=== PATIENT | male | born 1980 | race Caucasian/White ===

== ENCOUNTER 2020-12-06 07:08 | Emergency (ER) | payer OTHER ==
[~2020-12-06] VITALS: Ht 162.6 cm; Wt 63.5 kg
--- NOTE | 2020-12-06 07:13 | NUR ---
pt self presents to ed. ambulatory w/ steady gait requesting voluntary psych admission for having suicidal ideation but denies any specific plan. pt admits to smoking meth but denies alcohol or any other drugs. placed on si precaution. sitter at bedside. awaiting md gayle.
[2020-12-06 07:14] VITALS: BP 135/88
--- NOTE | 2020-12-06 07:14 | NUR ---
dr castaneda at bedside for eval.
--- NOTE | 2020-12-06 07:24 | NUR ---
urine specimen collected. sent to lab.
--- NOTE | 2020-12-06 07:25 | NUR ---
lab specialist at bedside for blood draw.
[2020-12-06] MEDS ORDERED: OLANZAPINE 5 MG TABLET ONE (07:31)
[2020-12-06 07:36] LABS: BASOPHILS % (AUTO) 0.5 % (0.0-2.0); EOSINOPHILS % (AUTO) 1.5 % (0.0-6.0); HEMATOCRIT 40 % (39-51); HEMOGLOBIN 13.3 g/dL (13.5-17.5); LYMPHOCYTES % (AUTO) 9.6 % (20.0-44.0); MEAN CORPUSCULAR HGB CONC 33 g/dl (31.0-36.0); MEAN CORPUSCULAR VOLUME 83 fL (80-96); MONOCYTES # (AUTO) 0.6 /CMM (0.1-1.30); MONOCYTES % (AUTO) 6.2 % (2.0-12.0); NEUTROPHILS # (AUTO) 8.2 /CMM (1.8-8.9); NEUTROPHILS % (AUTO) 82.2 % (43.0-81.0); PLATELET COUNT (AUTO) 345 /CMM (150-450); RED BLOOD CELL COUNT(AUTO) 4.82 MIL/uL (4.5-6.0)
[2020-12-06] MEDS: OLANZAPINE 5 MG TABLET PO ONE (07:39)
[2020-12-06 07:44] LABS: CALCIUM, SERUM 8.8 mg/dL (8.5-10.1); CARBON DIOXIDE 27 mmol/L (21-32); CHLORIDE 103 mmol/L (98-107); CREATININE 0.9 mg/dL (0.6-1.3); GLUCOSE 137 mg/dL (74-106); POTASSIUM 3.6 mmol/L (3.5-5.1); SODIUM SERUM 140 mmol/L (136-145); UREA NITROGEN, BLOOD 11 mg/dL (7-18)
[2020-12-06 07:44] LABS: BILIRUBIN,URINE Negative (NEGATIVE); COLOR,URINE YELLOW (YELLOW); LEUKOCYTE ESTERASE ,URINE Negative (NEGATIVE); NITRITE, URINE Negative (NEGATIVE); PROTEIN,URINE Negative (NEGATIVE); UGLUCOSE Negative (NEGATIVE); UROBILINOGEN,URINE 0.2 EU/dL (0.2)
[2020-12-06 07:45] LABS: BACTERIA,URINE Rare /HPF (None Seen); SQUAMOUS EPITHELIAL CELL,UR Rare /HPF (None Seen); WBC,URINE 0-2 /HPF (0-3)
[2020-12-06 07:50] LABS: ALANINE AMINOTRANSFERASE 26 U/L (12-78); ALBUMIN 3.8 g/dL (3.4-5.0); ALCOHOL, BLOOD < 3 mg/dL (0-0); ALKALINE PHOSPHATASE 95 U/L (46-116); ASPARTATE AMINOTRANSFERASE 18 U/L (15-37); BILIRUBIN,DIRECT 0.1 mg/dL (0.0-0.2); BILIRUBIN,TOTAL 0.3 mg/dL (0.2-1.0); TOTAL PROTEIN, SERUM 7.7 g/dL (6.4-8.2)
[2020-12-06 07:54] LABS: ACETAMINOPHEN 0 ug/ml (10-30)
--- NOTE | 2020-12-06 10:19 | NUR ---
patient accepted at [facility] (intake).
--- NOTE | 2020-12-06 10:50 | NUR ---
"SS Consult: SS Consult requested for Homelessness & requesting voluntary psych admission. The pt. is 40-year old male who presents to the ED with C/O auditory hallucinations, per EMR. DENNIS met with pt. bedside. The pt. appears disheveled, makes poor eye contact and refusing to be interviewed by SW. SW informed pt. that SW to assist with D/C planning to psych hospital. SW asked nurse to assist with arousing pt. Pt. with eye open and did not engage in conversation with SW. Plan: SW referred pt. to [facility] [[address] [place], [place] [address] FAX:[phone]] for inpatient psychiatric treatment. Patient refused to sign homeless waiver & it was placed in the pt.'s chart. SW provided pt. with the following homeless resources and pt. accepted them: Substance Abuse resources provided included: [facility] Substance Abuse Self-Helpline ([facility]) ; CRI -HELP [address] [facility]. [place] [address] ; [facility] [address] [facility] [address] ; [facility] Rehabilitation Program [address] [facility] [address] ; [facility] [address] [facility] [id number] ; [facility] 4940 [facility] [address] ; [facility] [address] [facility] [address] ; [facility] Substance Abuse Helpline([facility] ; [facility] ; [facility] [place]; [facility] [place]; C[facility]Help [place]; [facility] Zev Gentile; [facility] [place]; [facility] [place]; [facility] [place]; [facility]'s [place], [facility]. [facility]; Alcoholics Anonymous -SFV; Ac-Itcr-Qkqtsuq ; Marijuana Anonymous -SFV; Narcotics Anonymous www.na.org; Year-round shelters: [facility] [place] [address] [place], [place] [phone] ; [facility] [place] [address] [place] [address]; [facility] Sgdhhpa3354 [facility] [address] Winter Shelters: [facility] Provider: [facility] Address: [address] [place], [address] # of Beds: 47 Population Served: [facility] 6 | [facility] Provider: Home at Last Address: [address], [address] # of Beds: 66 Population Served: [facility] ILD [employer] [place] Provider: First to Serve Address: [address] [facility], [address] # of Beds: 56 Population Served: [facility] Dylan MerinoNella [place] Provider: [facility] Address: [address] [facility], [address] # of Beds: 49 Population Served: [facility] 8 | [facility] Provider: First to Serve Address: [address] [facility], [address] # of Beds: 37 Population Served: [facility] Hygiene: [facility]: [address] [address]. Therese ; [facility] [address] [facility] ; [facility] 6822 [facility] . Food Resources: [place] [facility] at [facility]- [address] [place]; Meet Each Need with Dignity ([facility]) [address] [place]; [facility] Food Pantry [address] [facility]; [facility] 8590 [facility]. Mental Health resources provided: [facility] [address] [place], [place] [id number] ; [facility] [address] [facility] [address], [place] [address] ; [facility] [address] [facility] [place], [place] [id number] ; [facility] Health Mobile [address] [place], [place] [id number] Healthcare Clinics: [facility] [address] [facility], [address] [place]. [place] ; [facility] [address] [facility] [facility] [facility] [address] [place] [address]; [facility] Health Mobile [address] [facility]. [place] [phone] Counseling--Outpatient Merg[facility] [address], [address] [place], [place] [address] (Specializes in in-depth psychotherapy for emotional distress: anxiety, depression, interpersonal conflicts, life transitions, childhood abuse) [facility] [address] [place] [address] (Assist with solving problem marital difficulties, separation & divorce, aging parents, & grief, chronic & terminal illness) [facility] [address] [place] [address] (Deal with loss & grief, anxiety, marital difficulties) Homebound/Mental Health Services [address] [facility], [address] [place], [place] [address] (Provide in-home mental services to people who are incapable of leaving their homes) [facility] of the Elderly Senior Service/Resource Center [address] [place] [address] [facility] [address] [place] [address] PSYCHIATRIC OUTPATIENT SERVICES [facility] Partial Hospitalization and Intensive Outpatient Program (Managed Care and [place] Only)[address] Kenny Diallo [facility] [phone] [facility] Partial Hospitalization and Outpatient [id number] [place], [place] [phone] [facility] Partial Hospitalization and Outpatient Npourmo8058 Zev [address]ck[address] [place], [place] [phone] [facility] [id number] [address] [place], [place] [phone] [facility] Partial Hospitalization and Outpatient [id number] [facility] [place] Zev GentileNOR[place], [phone] "
--- NOTE | 2020-12-06 12:40 | NUR ---
CALLED [facility] FOR TRANSPORT TO [facility], ETA 60 MINUTES.
--- NOTE | 2020-12-06 13:49 | NUR ---
REPORT GIVEN TO DIRECTOR BUSINESS TRAVEL, PATIENT A/OX4, BREATHING EVEN AND UNLABORED, NO SOB NOTED. PATIENT TRANSFERRED TO [facility] IN STABLE CONDITION.
== END 2020-12-06 14:06 ==
LOC: ER 07:08
DX: F20.9 Schizophrenia, unspecified (principal); Z59.0 Homelessness; Z91.013 Allergy to seafood; F31.9 Bipolar disorder, unspecified; Z20.822 Contact with and (suspected) exposure to COVID-19
CPT/HCPCS: 36415; 80048; 80076; 80143; 80307; 80320; 81001; 85025; 87426; 99285; C9803; G0480

== ENCOUNTER 2022-01-28 15:40 | Emergency (ER) | payer OTHER ==
[~2022-01-28] VITALS: Ht 167.6 cm; Wt 71.2 kg
[2022-01-28 16:50] LABS: BASOPHILS % (AUTO) 0.3 % (0.0-2.0); EOSINOPHILS % (AUTO) 0.4 % (0.0-6.0); HEMATOCRIT 41 % (39-51); HEMOGLOBIN 13.5 g/dL (13.5-17.5); LYMPHOCYTES % (AUTO) 9.5 % (20.0-44.0); MEAN CORPUSCULAR HGB CONC 33 g/dl (31.0-36.0); MEAN CORPUSCULAR VOLUME 82 fL (80-96); MONOCYTES # (AUTO) 0.9 K/uL (0.1-1.30); NEUTROPHILS # (AUTO) 8.3 K/uL (1.8-8.9); NEUTROPHILS % (AUTO) 80.8 % (43.0-81.0); PLATELET COUNT (AUTO) 310 K/uL (150-450); RED BLOOD CELL COUNT(AUTO) 4.98 MIL/uL (4.5-6.0); WHITE BLOOD COUNT (AUTO) 10.2 K/uL (4.3-11.0)
[2022-01-28 17:17] LABS: CARBON DIOXIDE 29 mmol/L (21-32); CHLORIDE 102 mmol/L (98-107); GLUCOSE 95 mg/dL (74-106); POTASSIUM 4.5 mmol/L (3.5-5.1); SODIUM SERUM 139 mmol/L (136-145); UREA NITROGEN, BLOOD 14 mg/dL (7-18)
[2022-01-28 17:21] LABS: ACETAMINOPHEN < 0 ug/ml (10-30); ALANINE AMINOTRANSFERASE 20 U/L (12-78); ALBUMIN 3.9 g/dL (3.4-5.0); ALCOHOL, BLOOD < 3 mg/dL (0-0); ALKALINE PHOSPHATASE 86 U/L (46-116); ASPARTATE AMINOTRANSFERASE 11 U/L (15-37); BILIRUBIN,DIRECT 0.1 mg/dL (0.0-0.2); BILIRUBIN,TOTAL 0.3 mg/dL (0.2-1.0); TOTAL PROTEIN, SERUM 8.1 g/dL (6.4-8.2)
--- NOTE | 2022-01-28 19:06 | NUR ---
COVID TEST COLLECTED AND SENT
--- NOTE | 2022-01-28 19:44 | NUR ---
urine collected sent to lab
[2022-01-28 19:56] LABS: BILIRUBIN,URINE NEGATIVE (NEGATIVE); COLOR,URINE YELLOW (YELLOW); LEUKOCYTE ESTERASE ,URINE NEGATIVE (NEGATIVE); NITRITE, URINE NEGATIVE (NEGATIVE); PH,URINE 8.5 (5.0-8.0); PROTEIN,URINE NEGATIVE (NEGATIVE); UGLUCOSE NEGATIVE (NEGATIVE); UROBILINOGEN,URINE 0.2 EU/dL (0.2)
--- NOTE | 2022-01-28 21:10 | NUR ---
FACESHEET AND CLINICALS FAXED TO [facility].
[2022-01-28] MEDS ORDERED: OLANZAPINE 5 MG TABLET ONE (21:45)
--- NOTE | 2022-01-28 21:48 | NUR ---
PATIENT REFUSED MEDICATION LOAN SECRETARY NOTIFIED.
[2022-01-28] MEDS ORDERED: OLANZAPINE 5 MG TABLET PO ONE (22:00)
[2022-01-29] VITALS: BP 127/71
--- NOTE | 2022-01-29 01:14 | NUR ---
TRANSFER INFO PT ACCEPTED AT [facility] UNDER DR. ERAZO. NUMBER FOR REPORT:
--- NOTE | 2022-01-29 01:17 | NUR ---
[facility] ETA 1 HOUR.
--- NOTE | 2022-01-29 01:51 | NUR ---
REPORT GIVEN TO CRYSTAL HARDEN
--- NOTE | 2022-01-29 02:14 | NUR ---
[facility] AT BED SIDE TO OWNER MANAGER THE PT
== END 2022-01-29 02:20 ==
LOC: ER 15:48
DX: R44.0 Auditory hallucinations (principal); Z20.822 Contact with and (suspected) exposure to COVID-19; Z59.00 Homelessness unspecified; Z91.013 Allergy to seafood; F31.9 Bipolar disorder, unspecified
CPT/HCPCS: 99285; 85025; 80048; 80076; 81003; 36415; 87426; 80143; 80320; 80307; C9803; G0480

== ENCOUNTER 2024-12-05 20:56 | Emergency (ER) | payer OTHER ==
[~2024-12-05] VITALS: Ht 160 cm; Wt 68.0 kg
[2024-12-05 23:20] LABS: BASOPHILS # (AUTO) 0.1 K/uL (0.0-0.2); BASOPHILS % (AUTO) 0.7 % (0.0-2.0); EOSINOPHILS # (AUTO) 0.1 K/uL (0.0-0.7); EOSINOPHILS % (AUTO) 1.6 % (0.0-6.0); HEMATOCRIT 40 % (39-51); HEMOGLOBIN 12.8 g/dL (13.5-17.5); LYMPHOCYTES # (AUTO) 1.3 K/uL (0.8-4.8); LYMPHOCYTES % (AUTO) 16.3 % (20.0-44.0); MEAN CORPUSCULAR HEMOGLOBIN 24 PG (26.0-33.0); MEAN CORPUSCULAR HGB CONC 32 g/dl (31.0-36.0); MEAN CORPUSCULAR VOLUME 76 fL (80-96); MONOCYTES # (AUTO) 0.7 K/uL (0.1-1.30); NEUTROPHILS % (AUTO) 72.4 % (43.0-81.0); PLATELET COUNT (AUTO) 398 K/uL (150-450); RED BLOOD CELL COUNT(AUTO) 5.27 MIL/uL (4.5-6.0); RED CELL DISTRIBUTION WIDTH 16.5 % (11.5-15.0); WHITE BLOOD COUNT (AUTO) 8.2 K/uL (4.3-11.0)
[2024-12-05 23:25] LABS: APPEARANCE,URINE CLEAR (CLEAR); BILIRUBIN,URINE NEGATIVE (NEGATIVE); BLOOD, URINE NEGATIVE Ery/uL (NEGATIVE); COLOR,URINE YELLOW (YELLOW); KETONES,URINE 2+ mg/dL (NEGATIVE); LEUKOCYTE ESTERASE ,URINE NEGATIVE (NEGATIVE); NITRITE, URINE NEGATIVE (NEGATIVE); PROTEIN,URINE NEGATIVE (NEGATIVE); UGLUCOSE NEGATIVE (NEGATIVE); UROBILINOGEN,URINE 0.2 EU/dL (0.2)
[2024-12-05 23:32] LABS: CALCIUM, SERUM 9.3 mg/dL (8.5-10.1); CARBON DIOXIDE 27 mmol/L (21-32); CHLORIDE 105 mmol/L (98-107); CREATININE 0.9 mg/dL (0.6-1.3); GLUCOSE 103 mg/dL (74-106); POTASSIUM 3.9 mmol/L (3.5-5.1); SODIUM SERUM 143 mmol/L (136-145); UREA NITROGEN, BLOOD 16 mg/dL (7-18)
[2024-12-05 23:35] LABS: ALANINE AMINOTRANSFERASE 19 U/L (12-78); ALBUMIN 3.7 g/dL (3.4-5.0); ALCOHOL, BLOOD < 3 mg/dL (0-10); ALKALINE PHOSPHATASE 100 U/L (46-116); ASPARTATE AMINOTRANSFERASE 16 U/L (15-37); BILIRUBIN,TOTAL 0.4 mg/dL (0.2-1.0); TOTAL PROTEIN, SERUM 8.2 g/dL (6.4-8.2)
[2024-12-05 23:36] LABS: AMPHETAMINE, URINE NEGATIVE (NEGATIVE); BARBITURATE, URINE NEGATIVE (NEGATIVE); BENZODIAZEPINE, URINE NEGATIVE (NEGATIVE); CANNABINOID, URINE POSITIVE (NEGATIVE); COCCAINE, URINE NEGATIVE (NEGATIVE); OPIATE, URINE NEGATIVE (NEGATIVE); PHENCYCLIDINE SCREEN,URINE NEGATIVE (NEGATIVE)
[2024-12-05 23:36] LABS: ACETAMINOPHEN <10 ug/ml (10-30); SALICYLATE 1.5 mg/dL (2.8-20.0)
[2024-12-06] LABS: ADD URINE CULTURE YES; BACTERIA,URINE Moderate /HPF (None Seen); MUCUS,URINE Many /LPF (None Seen); SQUAMOUS EPITHELIAL CELL,UR Many /HPF (None Seen)
[2024-12-06] MEDS ORDERED: SULFAMETH/TRIMETH 800/160 MG 1 UDTAB TABLET ONE (01:30)
[2024-12-06] MEDS: SULFAMETH/TRIMETH 800/160 MG 1 UDTAB TABLET PO ONE (01:30)
[2024-12-06 05:11] VITALS: BP 119/67; TEMP 97.5; O2SAT 98
== END 2024-12-06 05:11 ==
LOC: ER 20:58
DX: R44.0 Auditory hallucinations (principal); R45.851 Suicidal ideations; F12.90 Cannabis use, unspecified, uncomplicated; Z59.00 Homelessness unspecified; Z20.822 Contact with and (suspected) exposure to COVID-19
CPT/HCPCS: 36415; 80053-TC; 81001; 85025-TC; 87086-TC; 98960; G0480

== ENCOUNTER 2025-03-27 15:42 | Emergency (ER) | payer MEDICAID, OTHER ==
[~2025-03-27] VITALS: Ht 167.6 cm; Wt 70.3 kg
[2025-03-27 16:10] VITALS: TEMP 98
[2025-03-27 17:06] LABS: PLATELET COUNT (AUTO) 401 K/uL (150-450); RED BLOOD CELL COUNT(AUTO) 4.91 MIL/uL (4.5-6.0); RED CELL DISTRIBUTION WIDTH 17.0 % (11.5-15.0); WHITE BLOOD COUNT (AUTO) 9.2 K/uL (4.3-11.0)
[2025-03-27 17:11] LABS: APPEARANCE,URINE CLEAR (CLEAR); BLOOD, URINE Negative Ery/uL (NEGATIVE); LEUKOCYTE ESTERASE ,URINE Negative (NEGATIVE); NITRITE, URINE NEGATIVE (NEGATIVE); UGLUCOSE Negative (NEGATIVE)
[2025-03-27 17:12] LABS: ADD URINE CULTURE NO; SQUAMOUS EPITHELIAL CELL,UR Rare /HPF (None Seen)
[2025-03-27 17:14] LABS: CALCIUM, SERUM 9.1 mg/dL (8.5-10.1); CREATININE 1.0 mg/dL (0.6-1.3); SODIUM SERUM 139 mmol/L (136-145); UREA NITROGEN, BLOOD 12 mg/dL (7-18)
[2025-03-27 17:19] LABS: AMPHETAMINE, URINE NEGATIVE (NEGATIVE); BARBITURATE, URINE NEGATIVE (NEGATIVE); BENZODIAZEPINE, URINE NEGATIVE (NEGATIVE); CANNABINOID, URINE POSITIVE (NEGATIVE); COCCAINE, URINE NEGATIVE (NEGATIVE); OPIATE, URINE NEGATIVE (NEGATIVE)
[2025-03-27 17:19] LABS: ASPARTATE AMINOTRANSFERASE 26 U/L (15-37); TOTAL PROTEIN, SERUM 8.2 g/dL (6.4-8.2)
[2025-03-27 18:10] VITALS: BP 123/79; O2SAT 97
== END 2025-03-27 21:34 ==
LOC: ER 15:44
DX: R45.851 Suicidal ideations (principal); F12.90 Cannabis use, unspecified, uncomplicated; F20.9 Schizophrenia, unspecified; F32.A Depression, unspecified; Z59.00 Homelessness unspecified; Z91.013 Allergy to seafood; Z20.822 Contact with and (suspected) exposure to COVID-19; Z79.899 Other long term (current) drug therapy
CPT/HCPCS: 36415; 80048-TC; 80076-TC; 81001; 85025-TC

== ENCOUNTER 2025-04-07 19:41 | Emergency (ER) | payer MEDICAID, OTHER ==
[~2025-04-07] VITALS: Ht 167.6 cm; Wt 83.9 kg
[2025-04-07 20:36] VITALS: BP 141/76; TEMP 98.6; O2SAT 98
[2025-04-07 20:59] LABS: APPEARANCE,URINE CLEAR (CLEAR); BLOOD, URINE NEGATIVE Ery/uL (NEGATIVE); LEUKOCYTE ESTERASE ,URINE NEGATIVE (NEGATIVE); NITRITE, URINE NEGATIVE (NEGATIVE); UGLUCOSE NEGATIVE (NEGATIVE)
[2025-04-07 21:14] LABS: PLATELET COUNT (AUTO) 384 K/uL (150-450); RED BLOOD CELL COUNT(AUTO) 5.22 MIL/uL (4.5-6.0); RED CELL DISTRIBUTION WIDTH 16.8 % (11.5-15.0); WHITE BLOOD COUNT (AUTO) 9.6 K/uL (4.3-11.0)
[2025-04-07 21:17] LABS: AMPHETAMINE, URINE NEGATIVE (NEGATIVE); BARBITURATE, URINE NEGATIVE (NEGATIVE); BENZODIAZEPINE, URINE NEGATIVE (NEGATIVE); COCCAINE, URINE NEGATIVE (NEGATIVE); OPIATE, URINE NEGATIVE (NEGATIVE)
[2025-04-07 21:21] LABS: CANNABINOID, URINE POSITIVE (NEGATIVE)
[2025-04-07 21:24] LABS: CALCIUM, SERUM 9.6 mg/dL (8.5-10.1); CREATININE 1.0 mg/dL (0.6-1.3); SODIUM SERUM 141 mmol/L (136-145); UREA NITROGEN, BLOOD 13 mg/dL (7-18)
[2025-04-07 21:30] LABS: ASPARTATE AMINOTRANSFERASE 20 U/L (15-37); TOTAL PROTEIN, SERUM 8.7 g/dL (6.4-8.2)
== END 2025-04-08 03:13 ==
LOC: ER 19:44
DX: F20.9 Schizophrenia, unspecified (principal); F12.10 Cannabis abuse, uncomplicated; Z02.89 Encounter for other administrative examinations; Z59.00 Homelessness unspecified; Z91.013 Allergy to seafood; Z20.822 Contact with and (suspected) exposure to COVID-19
CPT/HCPCS: 36415; 80048-TC; 80076-TC; 85025-TC

== ENCOUNTER 2025-04-20 16:07 | Emergency (ER) | payer MEDICAID ==
[~2025-04-20] VITALS: Ht 152.4 cm; Wt 81.6 kg
[2025-04-20] MEDS ORDERED: NAPR-1164 PO (17:14)
[2025-04-20] MEDS: IBUPROFEN 600 MG TABLET PO ONE (17:30)
[2025-04-20] MEDS: OLANZAPINE ZYDIS 5 MG TAB.RAPDIS PO ONE (17:30)
[2025-04-20 17:51] LABS: PLATELET COUNT (AUTO) 397 K/uL (150-450); RED BLOOD CELL COUNT(AUTO) 4.92 MIL/uL (4.5-6.0); RED CELL DISTRIBUTION WIDTH 16.2 % (11.5-15.0); WHITE BLOOD COUNT (AUTO) 13.5 K/uL (4.3-11.0)
[2025-04-20 17:58] LABS: CALCIUM, SERUM 9.1 mg/dL (8.5-10.1); CREATININE 1.0 mg/dL (0.6-1.3); SODIUM SERUM 142 mmol/L (136-145); UREA NITROGEN, BLOOD 16 mg/dL (7-18)
[2025-04-20 18:05] LABS: ASPARTATE AMINOTRANSFERASE 22 U/L (15-37); TOTAL PROTEIN, SERUM 8.6 g/dL (6.4-8.2)
[2025-04-20] MEDS ORDERED: OLANZAPINE 10 MG VIAL IM ONE (19:27)
[2025-04-20] MEDS: OLANZAPINE 10 MG VIAL IM ONE (19:30)
[2025-04-20 21:57] LABS: APPEARANCE,URINE CLEAR (CLEAR); BLOOD, URINE NEGATIVE Ery/uL (NEGATIVE); LEUKOCYTE ESTERASE ,URINE NEGATIVE (NEGATIVE); NITRITE, URINE NEGATIVE (NEGATIVE); UGLUCOSE NEGATIVE (NEGATIVE)
[2025-04-20 22:16] LABS: AMPHETAMINE, URINE NEGATIVE (NEGATIVE); BARBITURATE, URINE NEGATIVE (NEGATIVE); BENZODIAZEPINE, URINE NEGATIVE (NEGATIVE); COCCAINE, URINE NEGATIVE (NEGATIVE); OPIATE, URINE NEGATIVE (NEGATIVE)
[2025-04-20 22:17] LABS: CANNABINOID, URINE POSITIVE (NEGATIVE)
[2025-04-20] MEDS ORDERED: HALOPERIDOL LACTATE INJ 5 MG/ML VIAL ONE (23:15)
[2025-04-20] MEDS ORDERED: LORAZEPAM INJ 2 MG/ML VIAL ONE (23:16)
[2025-04-20] MEDS: HALOPERIDOL LACTATE INJ 5 MG/ML VIAL IM ONE (23:18)
[2025-04-20] MEDS: LORAZEPAM INJ 2 MG/ML VIAL IM ONE (23:18)
[2025-04-21 10:30] VITALS: BP 133/84; TEMP 98; O2SAT 99
== END 2025-04-21 09:00 | disposition home or self-care (01) ==
LOC: ER 16:15
DX: G89.29 Other chronic pain (principal); M79.605 Pain in left leg; R45.1 Restlessness and agitation; F20.9 Schizophrenia, unspecified; F12.90 Cannabis use, unspecified, uncomplicated; Z59.00 Homelessness unspecified; Z91.013 Allergy to seafood
CPT/HCPCS: 99285; 96372; 73552; 73590; 85025; 80048; 80076; 81003; 36415; 80143; 80307; J2060; J1630; J3490; A6403

== ENCOUNTER 2025-04-21 11:50 | Emergency (ER) | payer MEDICAID ==
[~2025-04-21] VITALS: Ht 162.6 cm; Wt 72.6 kg
[~2025-04-21 11:50] MED LIST: NAPR-1164 PO
[2025-04-21 12:22] VITALS: TEMP 97.9
[2025-04-21] MEDS ORDERED: HALOPERIDOL LACTATE INJ 5 MG/ML VIAL ONE (13:53)
[2025-04-21] MEDS: HALOPERIDOL LACTATE INJ 5 MG/ML VIAL IM ONE (13:58)
[2025-04-21 17:05] VITALS: BP 129/93; O2SAT 97
== END 2025-04-21 17:10 ==
LOC: ER 12:52
DX: F20.9 Schizophrenia, unspecified (principal); F12.90 Cannabis use, unspecified, uncomplicated; Z76.0 Encounter for issue of repeat prescription; Z91.013 Allergy to seafood; Z59.00 Homelessness unspecified
CPT/HCPCS: 99285; 96372; J1200; J1630

== ENCOUNTER 2025-05-08 21:04 | Emergency (ER) | payer MEDICAID, OTHER ==
[~2025-05-08] VITALS: Ht 160 cm; Wt 72.6 kg
[2025-05-08 23:04] LABS: PLATELET COUNT (AUTO) 404 K/uL (150-450); RED BLOOD CELL COUNT(AUTO) 4.88 MIL/uL (4.5-6.0); RED CELL DISTRIBUTION WIDTH 14.9 % (11.5-15.0); WHITE BLOOD COUNT (AUTO) 10.6 K/uL (4.3-11.0)
[2025-05-08 23:12] LABS: ASPARTATE AMINOTRANSFERASE 16 U/L (15-37); CALCIUM, SERUM 9.3 mg/dL (8.5-10.1); CREATININE 1.0 mg/dL (0.6-1.3); SODIUM SERUM 139 mmol/L (136-145); TOTAL PROTEIN, SERUM 8.6 g/dL (6.4-8.2); UREA NITROGEN, BLOOD 14 mg/dL (7-18)
[2025-05-08 23:13] LABS: ALCOHOL, BLOOD < 3 mg/dL (0-10)
[2025-05-08 23:32] LABS: APPEARANCE,URINE CLEAR (CLEAR); BLOOD, URINE NEGATIVE Ery/uL (NEGATIVE); LEUKOCYTE ESTERASE ,URINE NEGATIVE (NEGATIVE); NITRITE, URINE NEGATIVE (NEGATIVE); UGLUCOSE NEGATIVE (NEGATIVE)
[2025-05-08 23:42] LABS: AMPHETAMINE, URINE NEGATIVE (NEGATIVE); BARBITURATE, URINE NEGATIVE (NEGATIVE); BENZODIAZEPINE, URINE NEGATIVE (NEGATIVE); COCCAINE, URINE NEGATIVE (NEGATIVE); OPIATE, URINE NEGATIVE (NEGATIVE)
[2025-05-08 23:43] LABS: CANNABINOID, URINE POSITIVE (NEGATIVE)
[2025-05-09 13:01] VITALS: TEMP 98.1
[2025-05-09 14:22] VITALS: BP 116/81; O2SAT 98
== END 2025-05-09 14:22 ==
LOC: ER 21:21
DX: F20.9 Schizophrenia, unspecified (principal); F12.90 Cannabis use, unspecified, uncomplicated; Z59.00 Homelessness unspecified; Z91.013 Allergy to seafood; Z20.822 Contact with and (suspected) exposure to COVID-19
CPT/HCPCS: 36415; 80048-TC; 80076-TC; 85025-TC; G0480

== ENCOUNTER 2025-05-20 00:35 | Emergency (ER) | payer OTHER ==
[~2025-05-20] VITALS: Ht 162.6 cm; Wt 93.0 kg
[2025-05-20 03:18] VITALS: TEMP 98.1
[2025-05-20] MEDS: CLOBETASOL 0.05% OINT 30 GM TUBE TP SCH (03:30)
[2025-05-20 03:46] LABS: PLATELET COUNT (AUTO) 503 K/uL (150-450); RED BLOOD CELL COUNT(AUTO) 4.83 MIL/uL (4.5-6.0); RED CELL DISTRIBUTION WIDTH 14.6 % (11.5-15.0); WHITE BLOOD COUNT (AUTO) 11.5 K/uL (4.3-11.0)
[2025-05-20 03:55] LABS: CALCIUM, SERUM 9.4 mg/dL (8.5-10.1); CREATININE 1.1 mg/dL (0.6-1.3); SODIUM SERUM 141 mmol/L (136-145); UREA NITROGEN, BLOOD 13 mg/dL (7-18)
[2025-05-20 04:01] LABS: ALCOHOL, BLOOD < 3 mg/dL (0-10); ASPARTATE AMINOTRANSFERASE 18 U/L (15-37); TOTAL PROTEIN, SERUM 8.8 g/dL (6.4-8.2)
[2025-05-20 04:41] VITALS: BP 149/78; O2SAT 96
[2025-05-20 04:51] LABS: APPEARANCE,URINE CLEAR (CLEAR); BLOOD, URINE NEGATIVE Ery/uL (NEGATIVE); LEUKOCYTE ESTERASE ,URINE NEGATIVE (NEGATIVE); NITRITE, URINE NEGATIVE (NEGATIVE); UGLUCOSE NEGATIVE (NEGATIVE)
[2025-05-20 04:57] LABS: AMPHETAMINE, URINE NEGATIVE (NEGATIVE); BARBITURATE, URINE NEGATIVE (NEGATIVE); BENZODIAZEPINE, URINE NEGATIVE (NEGATIVE); COCCAINE, URINE NEGATIVE (NEGATIVE); OPIATE, URINE NEGATIVE (NEGATIVE)
[2025-05-20 04:59] LABS: CANNABINOID, URINE POSITIVE (NEGATIVE)
[2025-05-20 05:03] LABS: ADD URINE CULTURE NO; SQUAMOUS EPITHELIAL CELL,UR 0-2 /HPF (None Seen)
[2025-05-20] MEDS ORDERED: SULF1TAB48 PO (20:48)
[2025-05-20] MEDS ORDERED: CEPH-570 PO (20:48)
== END 2025-05-20 15:16 ==
LOC: ER 00:38
DX: L40.9 Psoriasis, unspecified (principal); F22 Delusional disorders; Z59.00 Homelessness unspecified; Z91.013 Allergy to seafood; Z20.822 Contact with and (suspected) exposure to COVID-19; Z79.899 Other long term (current) drug therapy
CPT/HCPCS: 36415; 80048-TC; 80076-TC; 81001; 85025-TC; G0480

== ENCOUNTER 2025-05-20 17:14 | Emergency (ER) | payer OTHER ==
[~2025-05-20] VITALS: Ht 162.6 cm; Wt 93.0 kg
[2025-05-20] MEDS: CEFTRIAXONE 1 G VIAL IM ONE (20:05)
[2025-05-20] MEDS: LIDOCAINE 1%-EPI 1:100,000 20 ML VIAL TP ONE (20:05)
[2025-05-20] MEDS ORDERED: SULF1TAB48 PO (20:48)
[2025-05-20] MEDS ORDERED: CEPH-570 PO (20:48)
[2025-05-20 22:15] VITALS: BP 127/84; TEMP 97.6; O2SAT 98
== END 2025-05-21 00:11 | disposition home or self-care (01) ==
LOC: ER 17:24
DX: L02.31 Cutaneous abscess of buttock (principal); F20.9 Schizophrenia, unspecified; Z59.00 Homelessness unspecified; Z91.013 Allergy to seafood
CPT/HCPCS: 99283; 10060; 96372; J0696

== ENCOUNTER 2025-05-21 00:07 | Emergency (ER) | payer OTHER ==
[~2025-05-21] VITALS: Ht 162.6 cm; Wt 93.0 kg
[~2025-05-21 00:07] MED LIST changes: +CEPH-570 PO; +SULF1TAB48 PO
[2025-05-21 00:55] LABS: PLATELET COUNT (AUTO) 458 K/uL (150-450); RED BLOOD CELL COUNT(AUTO) 4.76 MIL/uL (4.5-6.0); RED CELL DISTRIBUTION WIDTH 14.8 % (11.5-15.0); WHITE BLOOD COUNT (AUTO) 10.6 K/uL (4.3-11.0)
[2025-05-21 01:11] LABS: CALCIUM, SERUM 8.9 mg/dL (8.5-10.1); CREATININE 0.9 mg/dL (0.6-1.3); SODIUM SERUM 141 mmol/L (136-145); UREA NITROGEN, BLOOD 11 mg/dL (7-18)
[2025-05-21 01:14] LABS: ALCOHOL, BLOOD < 3 mg/dL (0-10); ASPARTATE AMINOTRANSFERASE 13 U/L (15-37); TOTAL PROTEIN, SERUM 8.2 g/dL (6.4-8.2)
[2025-05-21 02:39] LABS: APPEARANCE,URINE CLEAR (CLEAR); BLOOD, URINE NEGATIVE Ery/uL (NEGATIVE); LEUKOCYTE ESTERASE ,URINE NEGATIVE (NEGATIVE); NITRITE, URINE NEGATIVE (NEGATIVE); UGLUCOSE NEGATIVE (NEGATIVE)
[2025-05-21 02:47] LABS: AMPHETAMINE, URINE NEGATIVE (NEGATIVE); BARBITURATE, URINE NEGATIVE (NEGATIVE); BENZODIAZEPINE, URINE NEGATIVE (NEGATIVE); CANNABINOID, URINE NEGATIVE (NEGATIVE); COCCAINE, URINE NEGATIVE (NEGATIVE); OPIATE, URINE NEGATIVE (NEGATIVE)
[2025-05-21 11:20] VITALS: BP 128/80; TEMP 98.2; O2SAT 96
== END 2025-05-21 11:23 | disposition left against medical advice (07) ==
LOC: ER 00:14
DX: R45.851 Suicidal ideations (principal); F20.9 Schizophrenia, unspecified; Z59.00 Homelessness unspecified; Z79.899 Other long term (current) drug therapy
CPT/HCPCS: 36415; 80048-TC; 80076-TC; 85025-TC; G0480